=== PATIENT | male | born 1960 | race African-American/Black ===

== ENCOUNTER 2020-01-28 02:29 | Emergency (ER) | payer SELFPAY ==
[~2020-01-28] VITALS: Ht 172.7 cm; Wt 100.0 kg
[2020-01-28 02:33] VITALS: BP 211/121
== END 2020-01-28 02:45 | disposition home or self-care (01) ==
LOC: ER 02:29
DX: Z04.89 Encounter for examination and observation for other specified reasons (principal); R41.82 Altered mental status, unspecified; I10 Essential (primary) hypertension; E11.9 Type 2 diabetes mellitus without complications
CPT/HCPCS: 99283